=== PATIENT | female | born 1980 | race Caucasian/White ===

== ENCOUNTER 2017-08-05 12:29 | Emergency (ER) | payer MEDICAID ==
[2017-08-05] MEDS: ACETAMINOPHEN 325 MG TAB PO (14:03)
[2017-08-05 14:42] LABS: ADD UMIC YES; UR ASCORBIC ACID NEGATIVE (NEGATIVE); UR BILIRUBIN (Dip) NEGATIVE (NEGATIVE); UR BLOOD (Dip) NEGATIVE (NEGATIVE); UR CLARITY CLEAR (CLEAR); UR COLOR COLORLESS (YELLOW); UR GLUCOSE (Dip) NEGATIVE (NEGATIVE); UR KETONES (Dip) NEGATIVE (NEGATIVE); UR LEUKOCYTE ESTERASE (Dip) TRACE Leu/ul (NEGATIVE); UR NITRITE (Dip) NEGATIVE (NEGATIVE); UR RBC 0 /HPF (0-5); UR SPECIFIC GRAVITY (Dip) 1.001 (1.003-1.030); UR TOTAL PROTEIN (Dip) NEGATIVE (NEGATIVE); UR UROBILINOGEN (Dip) NEGATIVE (NEGATIVE); UR WBC 0 /HPF (0-5)
== END 2017-08-05 15:45 | disposition home or self-care (01) ==
LOC: FTE 12:29
DX: O99.89 Other specified diseases and conditions complicating pregnancy, childbirth and the puerperium (principal); M54.5 Low back pain; O10.011 Pre-existing essential hypertension complicating pregnancy, first trimester; Z3A.13 13 weeks gestation of pregnancy
CPT/HCPCS: 76801; 81001; 99284-25

== ENCOUNTER 2017-11-14 13:53 | Outpatient (CLI) | payer MEDICAID ==
[2017-11-14 16:54] LABS: ADD UMIC YES; UR ASCORBIC ACID NEGATIVE (NEGATIVE); UR BILIRUBIN (Dip) NEGATIVE (NEGATIVE); UR BLOOD (Dip) NEGATIVE (NEGATIVE); UR CLARITY CLEAR (CLEAR); UR COLOR COLORLESS (YELLOW); UR GLUCOSE (Dip) NEGATIVE (NEGATIVE); UR KETONES (Dip) NEGATIVE (NEGATIVE); UR LEUKOCYTE ESTERASE (Dip) TRACE Leu/ul (NEGATIVE); UR NITRITE (Dip) NEGATIVE (NEGATIVE); UR RBC 0 /HPF (0-5); UR SPECIFIC GRAVITY (Dip) 1.005 (1.003-1.030); UR TOTAL PROTEIN (Dip) NEGATIVE (NEGATIVE); UR UROBILINOGEN (Dip) NEGATIVE (NEGATIVE); UR WBC 0 /HPF (0-5)
[2017-11-14] MEDS: LACTATED RINGER'S 1,000 ML IV ×2 (17:27→18:23)
[2017-11-14] MEDS: TERBUTALINE 1 MG/ML INJ SC (18:24)
== END 2017-11-14 21:14 | disposition home or self-care (01) ==
LOC: OBT 13:53 → L-D 13:53
DX: O62.9 Abnormality of forces of labor, unspecified (principal); Z3A.26 26 weeks gestation of pregnancy
CPT/HCPCS: 36415; 76815; 76817; 81001; 82731; 87086; 96360; 96361; 96372

== ENCOUNTER 2018-01-27 18:09 | Outpatient (CLI) | payer MEDICAID ==
[2018-01-27 19:40] LABS: ADD UMIC NO; UR ASCORBIC ACID NEGATIVE (NEGATIVE); UR BILIRUBIN (Dip) NEGATIVE (NEGATIVE); UR BLOOD (Dip) NEGATIVE (NEGATIVE); UR CLARITY CLEAR (CLEAR); UR COLOR STRAW (YELLOW); UR GLUCOSE (Dip) NEGATIVE (NEGATIVE); UR KETONES (Dip) NEGATIVE (NEGATIVE); UR LEUKOCYTE ESTERASE (Dip) NEGATIVE Leu/ul (NEGATIVE); UR NITRITE (Dip) NEGATIVE (NEGATIVE); UR SPECIFIC GRAVITY (Dip) 1.003 (1.003-1.030); UR TOTAL PROTEIN (Dip) NEGATIVE (NEGATIVE); UR UROBILINOGEN (Dip) NEGATIVE (NEGATIVE)
[2018-01-27 20:11] LABS: ADD MAN DIFF? NO
[2018-01-27 20:14] LABS: BASOPHILS % 0.3 % (0.0-2.0); EOSINOPHILS # 0.1 10^3/ul (0.0-0.5); EOSINOPHILS % 0.7 % (0.0-7.0); HEMATOCRIT 35.2 % (37.0-47.0); HEMOGLOBIN 11.7 g/dl (12.0-16.0); LYMPHOCYTES # 2.3 10^3/ul (0.8-2.9); LYMPHOCYTES % 23.9 % (15.0-51.0); MEAN CORPUSCULAR HEMOGLOBIN 29.1 pg (29.0-33.0); MEAN CORPUSCULAR HGB CONC 33.2 g/dl (32.0-37.0); MEAN CORPUSCULAR VOLUME 87.6 fl (82.0-101.0); MONOCYTE # 0.7 10^3/ul (0.3-0.9); MONOCYTES % 7.1 % (0.0-11.0); NEUTROPHIL # 6.3 10^3/ul (1.6-7.5); NEUTROPHILS % 67.4 % (39.0-77.0); PLATELET COUNT 188 10^3/UL (140-415); RED BLOOD COUNT 4.02 10^6/ul (4.20-5.40); RED CELL DISTRIBUTION WIDTH 13.3 % (11.5-14.5)
[2018-01-27 20:14] LABS: WHITE BLOOD COUNT 9.4 10^3/ul (4.8-10.8)
[2018-01-27 20:33] LABS: ALANINE AMINOTRANSFERASE 22 IU/L (13-69); ALBUMIN 2.9 g/dl (3.3-4.9); ALBUMIN/GLOBULIN RATIO 0.87; ALKALINE PHOSPHATASE 150 IU/L (42-121); ANION GAP 7 (5-13); ASPARTATE AMINO TRANSFERASE 36 IU/L (15-46); BLOOD UREA NITROGEN 10 mg/dl (7-20); CALCIUM 9.8 mg/dl (8.4-10.2); CARBON DIOXIDE 21 mmol/L (21-31); CHLORIDE 108 mmol/L (97-110); CREATININE 0.79 mg/dl (0.44-1.00); Estimated GFR > 60 mL/min (>60); GLUCOSE 82 mg/dl (70-220); POTASSIUM 4.7 mmol/L (3.5-5.1); SODIUM 136 mmol/L (135-144); TOTAL PROTEIN 6.2 g/dl (6.1-8.1)
[2018-01-27] MEDS: LABETALOL 200 MG TAB PO (20:34)
== END 2018-01-27 20:48 | disposition home or self-care (01) ==
LOC: OBT 18:09 → L-D 18:11 → OBT 20:48
DX: O16.3 Unspecified maternal hypertension, third trimester (principal); Z3A.37 37 weeks gestation of pregnancy
CPT/HCPCS: 76815; 80053; 81003; 85025

== ENCOUNTER 2018-01-28 10:03 | Inpatient (IN) | payer MEDICAID ==
[2018-01-28] MEDS ORDERED: OXYTOCIN 30 UNITS/LR 500 ML IV ×3 (11:00→23:30)
[2018-01-28] MEDS ORDERED: IBUPROFEN 600 MG TAB PO (11:00)
[2018-01-28] MEDS ORDERED: METHYLERGONOVINE 0.2 MG INJ IM ×2 (11:00→23:30)
[2018-01-28] MEDS: LACTATED RINGER'S 1,000 ML IV* (11:20)
[2018-01-28 11:40] LABS: ADD MAN DIFF? NO
[2018-01-28 11:44] LABS: WHITE BLOOD COUNT 8.5 10^3/ul (4.8-10.8)
[2018-01-28 11:44] LABS: BASOPHILS % 0.4 % (0.0-2.0); EOSINOPHILS # 0.1 10^3/ul (0.0-0.5); EOSINOPHILS % 0.7 % (0.0-7.0); HEMATOCRIT 34.7 % (37.0-47.0); HEMOGLOBIN 11.6 g/dl (12.0-16.0); LYMPHOCYTES # 1.9 10^3/ul (0.8-2.9); LYMPHOCYTES % 22.7 % (15.0-51.0); MEAN CORPUSCULAR HEMOGLOBIN 28.9 pg (29.0-33.0); MEAN CORPUSCULAR HGB CONC 33.4 g/dl (32.0-37.0); MEAN CORPUSCULAR VOLUME 86.5 fl (82.0-101.0); MEAN PLATELET VOLUME 12.2 fl (7.4-10.4); MONOCYTE # 0.5 10^3/ul (0.3-0.9); MONOCYTES % 5.8 % (0.0-11.0); NEUTROPHIL # 5.9 10^3/ul (1.6-7.5); NEUTROPHILS % 69.8 % (39.0-77.0); PLATELET COUNT 194 10^3/UL (140-415); RED BLOOD COUNT 4.01 10^6/ul (4.20-5.40); RED CELL DISTRIBUTION WIDTH 13.4 % (11.5-14.5)
[2018-01-28] MEDS: OXYTOCIN 30 UNITS/LR 500 ML IV ×3 (11:55→23:25)
[2018-01-28 12:03] LABS: INR 0.91; PARTIAL THROMBOPLASTIN TIME 27.6 Sec (23.0-35.0); PROTIME 12.3 Sec (11.9-14.9)
[2018-01-28 13:18] LABS: HEPATITIS B SURFACE ANTIGEN NEGATIVE (NEGATIVE)
[2018-01-28 15:43] LABS: RAPID PLASMA REAGIN NONREACTIVE (NR)
[2018-01-28] MEDS ORDERED: LIDOCAINE 0.5% (SDV) 50 ML INJ (15:56)
[2018-01-28] MEDS: BUTORPHANOL 2 MG INJ IV (17:51)
[2018-01-28] MEDS: MISOPROSTOL 200 MCG TAB PR ×2 (19:02→20:47)
[2018-01-28] MEDS: HYDROCODONE/APAP (5/325) TAB PO (19:29)
[2018-01-28] MEDS: CARBOPROST 250 MCG INJ IM (20:34)
[2018-01-28] MEDS: LABETALOL 100 MG TAB PO (20:47)
[2018-01-28] MEDS ORDERED: LABETALOL 100 MG TAB PO (21:00)
[2018-01-28] MEDS ORDERED: LACTATED RINGER'S 1,000 ML IV* (23:25)
[2018-01-28] MEDS ORDERED: DEXTROSE 5%-LR 1,000 ML IV (23:25)
[2018-01-28] MEDS ORDERED: ONDANSETRON 4 MG INJ IV (23:30)
[2018-01-28] MEDS ORDERED: DIPHENHYDRAMINE 50 MG INJ IV (23:30)
[2018-01-28] MEDS ORDERED: MISOPROSTOL 200 MCG TAB PR (23:30)
[2018-01-28] MEDS ORDERED: ZOLPIDEM 5 MG TAB PO (23:30)
[2018-01-28] MEDS ORDERED: CARBOPROST 250 MCG INJ IM (23:30)
[2018-01-28] MEDS ORDERED: DIBUCAINE 1% 30 GM OINT TOP (23:30)
[2018-01-28] MEDS ORDERED: LANOLIN 7 GM TUBE TOP (23:30)
[2018-01-28] MEDS ORDERED: ACETAMINOPHEN 325 MG TAB PO (23:30)
[2018-01-28] MEDS ORDERED: OXYCODONE/ASPIRIN (4.88/325) TAB PO (23:30)
[2018-01-29] MEDS: IBUPROFEN 600 MG TAB PO ×4 (00:54→17:40)
[2018-01-29 08:15] LABS: ADD MAN DIFF? NO
[2018-01-29 08:19] LABS: WHITE BLOOD COUNT 11.8 10^3/ul (4.8-10.8)
[2018-01-29 08:19] LABS: BASOPHILS % 0.2 % (0.0-2.0); EOSINOPHILS % 0.3 % (0.0-7.0); HEMATOCRIT 31.5 % (37.0-47.0); HEMOGLOBIN 10.5 g/dl (12.0-16.0); LYMPHOCYTES # 1.9 10^3/ul (0.8-2.9); LYMPHOCYTES % 16.4 % (15.0-51.0); MEAN CORPUSCULAR HEMOGLOBIN 29.2 pg (29.0-33.0); MEAN CORPUSCULAR HGB CONC 33.3 g/dl (32.0-37.0); MEAN CORPUSCULAR VOLUME 87.7 fl (82.0-101.0); MEAN PLATELET VOLUME 12.3 fl (7.4-10.4); MONOCYTE # 0.9 10^3/ul (0.3-0.9); MONOCYTES % 7.4 % (0.0-11.0); NEUTROPHIL # 8.9 10^3/ul (1.6-7.5); NEUTROPHILS % 75.2 % (39.0-77.0); PLATELET COUNT 176 10^3/UL (140-415); RED BLOOD COUNT 3.59 10^6/ul (4.20-5.40); RED CELL DISTRIBUTION WIDTH 13.2 % (11.5-14.5)
[2018-01-29] MEDS: SENNA/DOCUSATE NA (8.6MG/50MG) TAB PO (10:05)
[2018-01-29] MEDS: LABETALOL 100 MG TAB PO ×3 (10:26→22:16)
[2018-01-29] MEDS ORDERED: AL HYDROX/MG HYDROX/SIMETH 30 ML CUP PO (10:30)
[2018-01-29] MEDS: BENZOCAINE 20% 56 ML SPRAY TOP (17:41)
[2018-01-29] MEDS: WITCH HAZEL/GLYCERIN PAD PR (17:41)
[2018-01-30] MEDS: IBUPROFEN 600 MG TAB PO ×3 (00:54→11:28)
[2018-01-30] MEDS: LABETALOL 100 MG TAB PO (09:00)
[2018-01-30] MEDS: MEASLES,MUMPS,RUBELLA VACCINE INJ SC* (09:00)
[2018-01-30] MEDS: DIPHTH/TET/ACEL PERTUSS (ADULT) 0.5 ML VIAL IM* (10:03)
== END 2018-01-30 16:00 | disposition home or self-care (01) | DRG 807 ==
LOC: OBT 10:03 → PP1 01-29 15:50 → L-D 10:08
PROVIDERS: Obstetrics & Gynecology
PROC: 10E0XZZ Delivery of Products of Conception, External Approach (ICD-10-PCS; principal; 2018-01-28)
PROC: 3E033VJ Introduction of Other Hormone into Peripheral Vein, Percutaneous Approach (ICD-10-PCS; 2018-01-28)
DX: O10.92 Unspecified pre-existing hypertension complicating childbirth (principal); Z37.0 Single live birth; O69.81X0 Labor and delivery complicated by cord around neck, without compression, not applicable or unspecified; Z3A.37 37 weeks gestation of pregnancy
CPT/HCPCS: 85025; 85610; 85730; 86592; 86850; 86900; 86901; 87340; 90686; 90715